=== PATIENT | male | born 1965 | race American Indian/Alaskan Native ===

== ENCOUNTER 2019-05-10 13:35 | Outpatient (CLI) | payer OTHER ==
--- NOTE | 2019-05-10 14:21 | XRay Report ---
RIGHT HAND, 3 VIEWS: INDICATION: Right hand pain for 2 months. COMPARISON: None. IMPRESSION: No acute osseous or soft tissue abnormality. No significant DJD. Signer Name: Elier Miller Jr, MD Signed: 05/10/2019 2:16 PM Workstation Name: [id number]
== END 2019-05-10 13:36 | disposition home or self-care (01) ==
LOC: SPVIMAG 13:35
PROVIDERS: ATTEND Internal Medicine
DX: M79.641 Pain in right hand (principal)

== ENCOUNTER 2020-04-25 11:43 | Outpatient (CLI) | payer OTHER ==
--- NOTE | 2020-04-25 12:45 | XRay Report ---
CHEST 2 VIEWS INDICATION / CLINICAL INFORMATION: NIGHT SWEATS R61. COMPARISON: None available. FINDINGS: SUPPORT DEVICES: None. HEART / MEDIASTINUM: No significant abnormality. LUNGS / PLEURA: No significant pulmonary or pleural abnormality. No pneumothorax. ADDITIONAL FINDINGS: No significant additional findings. IMPRESSION: 1. No acute findings. Signer Name: Chon Angeles MD Signed: 04/25/2020 12:40 PM Workstation Name: [id number]
== END 2020-04-25 11:44 | disposition home or self-care (01) ==
LOC: SPVIMAG 11:43
PROVIDERS: ATTEND Internal Medicine
DX: R61 Generalized hyperhidrosis (principal)
CPT/HCPCS: 71046